=== PATIENT | female | born 1940 | race Caucasian/White ===

== ENCOUNTER → 2017-01-09 | Outpatient (CLI) | payer OTHER ==
[~2017-01-09] VITALS: Ht 152.4 cm; Wt 73.6 kg
[~2017-01-09] MED LIST: ATIVAN0.5 MG PO; BENICAR20 MG PO; BUSPAR5 MG PO; CENTRUM SILVER1 EAC4 PO; CYANOCOBALAM1000 MCG PO; LIPITOR20 MG PO; NAPROSYN500 MG PO; TOPROL XL25 MG PO; VALIUM5 MG PO; VITAMIN D31000 UNIT PO; ZOLOFT100 MG PO
== END | disposition home or self-care (01) ==
LOC: AMB 13:00
PROC: 0DBE8ZZ Excision of Large Intestine, Via Natural or Artificial Opening Endoscopic (ICD-10-PCS; principal; 2017-01-09)
DX: Z09 Encounter for follow-up examination after completed treatment for conditions other than malignant neoplasm (principal); D12.0 Benign neoplasm of cecum; Z86.010 Personal history of colon polyps; K64.9 Unspecified hemorrhoids; I10 Essential (primary) hypertension; Z87.891 Personal history of nicotine dependence
CPT/HCPCS: 88305; 93005; J2250